=== PATIENT | male | born 1940 | race Caucasian/White ===

== ENCOUNTER 2018-08-06 09:02 | Inpatient (IN) | payer MEDICARE ==
--- NOTE | 2018-08-06 09:28 | ED ---
Shortness of Breath - HPI Summary HPI Summary: This patient is a 78 year old M presenting to [facility] accompanied by his daughter with a chief complaint of SOB that began yesterday that was worse this morning. The patient rates the pain 0/10 in severity. Symptoms alleviated by increased O2 and neb treatments. Patient reports productive cough, LE pain, and severe TREVINO. Patient denies fever. Pt states that he had minor CP yesterday but it resolved. Patient was unable to walk from the car into the ED without multiple breaks. 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 There he was given an albuterol neb. He uses 2L of NC at home and yesterday had to use his CPAP all day to breath. He has needed breathing treatments constantly throughout the day which is unusual for him. - History of Current Complaint Chief Complaint: EDShortnessOfBreath Time Seen by Provider: 08/06/18 09:16 Hx Obtained From: Patient Onset/Duration: Still Present Current Severity: Moderate Alleviating Factors: Bronchodilators, Oxygen Associated Signs & Symptoms: Negative - fever, Cough (Productive), Chest Pain Unrelated to Cough - Allergy/Home Medications Allergies/Adverse Reactions: Allergies Allergy/AdvReac Type Severity Reaction Status Date / Time red dye Allergy Itching Verified 08/06/18 09:10 PMH/Surg Hx/FS Hx/Imm Hx Endocrine/Hematology History: Denies: Hx Diabetes, Hx Systemic Lupus Erythematosus, Hx Thyroid Disease Cardiovascular History: Reports: Hx Hypertension - ON MEDICATION, Hx Rheumatic Fever - A CHILD Denies: Hx Pacemaker/ICD Respiratory History: Reports: Hx Asthma, Hx Chronic Obstructive Pulmonary Disease (COPD), Hx Sleep Apnea History: Denies: Hx Renal Disease Musculoskeletal History: Reports: Hx Arthritis - OSTEOARTHRITIS LEFT KNEE, MOST JOINTS Denies: Hx Rheumatoid Arthritis Sensory History: Reports: Hx Contacts or Glasses - GLASSES Denies: Hx Hearing Aid Opthamlomology History: Reports: Hx Contacts or Glasses - GLASSES Neurological History: Reports: Other Neuro Impairments/Disorders - 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 knee replacement, bilateral. brain anerysm repair 1987; [facility] Anesthesia Reactions: No Infectious Disease History: No Infectious Disease History: Denies: Traveled Outside the [place] in Last 30 Days - Family History Known Family History: Negative: Seizure Disorder - Social History Lives: With Family Alcohol Use: Rare Substance Use Type: Reports: None Hx Tobacco Use: Yes Smoking Status (MU): Smoker, Current Status Unknown Review of Systems Negative: Fever, Chills Negative: Erythema Negative: Sore Throat Positive: Chest Pain - resolved Positive: Shortness Of Breath, Cough, Other - TREVINO Negative: Abdominal Pain, Vomiting, Nausea Negative: dysuria, hematuria Positive: Myalgia - LE pain . Negative: Edema Negative: Rash Neurological: Negative - dizziness All Other Systems Reviewed And Are Negative: Yes Physical Exam - Summary Physical Exam Summary: Constitutional: Well-developed, Well-nourished, Alert. (-) Distressed Skin: Warm, Dry HENT: Normocephalic; Atraumatic Eyes: Conjunctiva normal Neck: Musculoskeletal ROM normal neck. (-) JVD, (-) Stridor, (-) Tracheal deviation Cardio: Rhythm regular, rate normal, Heart sounds normal; Intact distal pulses; The pedal pulses are 2+ and symmetric. Radial pulses are 2+ and symmetric. (-) Murmur Pulmonary/Chest wall: diminished breath sounds, bilateral wheezing, no distress Abd: Soft, (-) epigastric tenderness, (-) Distension, (-) Guarding, (-) Rebound Musculoskeletal: (-) Edema Lymph: (-) Cervical adenopathy Neuro: Alert, Oriented x3 Psych: Mood and affect Normal Triage Information Reviewed: Yes Vital Signs On Initial Exam: Initial Vitals Temp Pulse Resp BP Pulse Ox 98 F 73 28 152/82 90 08/06/18 09:04 08/06/18 09:04 08/06/18 09:04 08/06/18 09:04 08/06/18 09:04 Vital Signs Reviewed: Yes Diagnostics - Vital Signs Vital Signs Temp Pulse Resp BP Pulse Ox 08/06/18 09:04 98 F 73 28 152/82 90 - Laboratory Result Diagrams: 08/06/18 09:39 08/06/18 09:39 Lab Statement: Any lab studies that have been ordered have been reviewed, and results considered in the medical decision making process. - Radiology CXR Radiology Interpretation Completed By: Radiologist - NO ACTIVE CARDIOPULMONARY DISEASE IS NOTED. ED physician has reviewed this radiology report. - EKG 1006 Cardiac Rate: NL EKG Rhythm: Sinus Rhythm - at 86 BPM EKG Interpretation: ectopic atrial rhythm Course/Dx - Course Assessment/Plan: This patient is a 78 year old M presenting to [facility] accompanied by his daughter with a chief complaint of SOB that began yesterday that was worse this morning. The patient rates the pain 0/10 in severity. Symptoms alleviated by increased O2 and neb treatments. Patient reports productive cough, LE pain, and severe TREVINO. Patient denies fever. Pt states that he had minor CP yesterday but it resolved. Patient was unable to walk from the car into the ED without multiple breaks. 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 There he was given an albuterol neb. He uses 2L of NC at home and yesterday had to use his CPAP all day to breath. He has needed breathing treatments constantly throughout the day which is unusual for him. An EKG reveals ectopic atrial rhythm. CXR reveals, per radiologist, NO ACTIVE CARDIOPULMONARY DISEASE IS NOTED. Blood work and UA obtained. In the ED course the patient was given multiple breathing treatments , which alleviated sx. Pt's O2 dropped rapidly with ambulation. We discussed patient care with Dr Baldwin and they recommended a D dimer. He also accepted the patient for admission. Patient will be admitted. The patient is agreeable with this plan. - Diagnoses Provider Diagnoses: COPD exacerbation - Physician Notifications Discussed Care of Patient With: Anthony Baldwin Time Discussed With Above Provider: 13:40 Instructed by Provider To: Admit As Inpatient - We discussed patient care with Dr Baldwin and they recommended a D dimer. He also accepted the patient for admission Discharge - Sign-Out/Discharge Documenting (check all that apply): Patient Departure - admitted - Discharge Plan Condition: Good Disposition: ADMITTED TO [facility] - Attestation Statements Document Initiated by Scribe: Yes Documenting Scribe: Matias Murillo Provider For Whom Scribe is Documenting (Include Credential): Keith Spain MD Scribe Attestation: Matias Ramos , scribed for Keith Spain MD on 08/06/18 at 1748.
[2018-08-06] MEDS ORDERED: methylPREDNISolone 125 MG* 2 ML VIAL IV ONE (09:32)
[2018-08-06] MEDS ORDERED: Albuterol/Ipratropium NEB.SOL* Albuterol 2.5 MG/Ipratropium 0.5 MG 3 ML INH ONE ×2 (09:32→15:36)
[2018-08-06 09:48] LABS: ABS Basophils 0 10^3/ul (0-0.2); ABS Eosinophils 0.2 10^3/ul (0-0.6); ABS Lymphocytes 0.7 10^3/ul (1.0-4.8); ABS Monocytes 0.5 10^3/ul (0-0.8); ABS Neutrophils 4.7 10^3/ul (1.5-7.7); ABS Nucleated RBC 0 10^3/ul; Eosinophil % 3.2 % (0-6); Hematocrit 47 % (42-52); Hemoglobin 15.6 g/dl (14.0-18.0); Lymphocyte % 11.5 % (25-47); Mean Corpuscular HGB Conc 34 g/dl (31-36); Mean Corpuscular Hemoglobin 32 pg (27-31); Mean Corpuscular Volume 95 fL (80-94); Mean Platelet Volume 6.7 um3 (7.4-10.4); Nucleated Red Blood Cells % 0.1; Platelet Count 209 10^3/ul (150-450); Red Blood Count 4.89 10^6/ul (4.00-5.40); Red Cell Distribution Width 15 % (10.5-15); White Blood Count 6.2 10^3/ul (3.5-10.8)
[2018-08-06 10:07] LABS: EGFR Non-African American 109.4 (>60)
--- NOTE | 2018-08-06 10:14 | RAD ---
Indication: Shortness of breath. Single frontal view of the chest performed at 0947 hours was reviewed. Comparison is made with previous exam dated June 05, 2018. No mediastinal shift is noted. Heart is of normal size and configuration. Lung bedoya appear clear. Lung bedoya appear hyperinflated. IMPRESSION: NO ACTIVE CARDIOPULMONARY DISEASE IS NOTED.
[2018-08-06] MEDS ORDERED: Albuterol/Ipratropium NEB.SOL* Albuterol 2.5 MG/Ipratropium 0.5 MG 3 ML ONE (12:35)
[2018-08-06] MEDS ORDERED: Albuterol/Ipratropium NEB.SOL* Albuterol 2.5 MG/Ipratropium 0.5 MG 3 ML INH SCH (16:00)
[2018-08-06 16:53] LABS: Urine Appearance Clear; Urine Blood Negative (Negative); Urine Color Yellow; Urine Ketones Negative (Negative); Urine Protein Negative (Negative); Urine Red Blood Cell Trace(0-2/hpf) (Absent); Urine Specific Gravity 1.017 (1.010-1.030); Urine Urobilinogen Negative (Negative); Urine White Blood Cell Trace(0-5/hpf) (Absent)
[2018-08-06] MEDS: methylPREDNISolone SOD 40 MG* 1 ML VIAL IV SCH (18:20)
[2018-08-06] MEDS: Enoxaparin(*) 40 MG/0.4 ML SYR SUBCUT SCH (18:20)
[2018-08-06] MEDS: Albuterol/Ipratropium NEB.SOL* Albuterol 2.5 MG/Ipratropium 0.5 MG 3 ML INH SCH ×2 (19:39→23:05)
[2018-08-06] MEDS: Mometasone/Formoter 200/5 MDI INH SCH (19:39)
--- NOTE | 2018-08-06 21:33 | HP ---
ADMITTING HISTORY AND PHYSICAL: DATE OF ADMISSION: 08/06/18. CHIEF COMPLAINT: Increased work of breathing. HISTORY OF PRESENT ILLNESS: The patient is a 78-year-old gentleman with history of hypertension, GERD, as well as COPD/asthma, who is being followed up by Dr. Barlow as an outpatient and was in his usual state of health until a few hours prior to admission when the patient was scheduled for his regular followup visit with Dr. Barlow, when he was asked to perform ambulatory sats, but was unable to do so. More specifically ambulatory sats revealed that patient desaturated around 83% and hence Dr. Barlow advised that he be evaluated in the ED and hence his current subsequent admission. PAST MEDICAL HISTORY AND SURGICAL HISTORY: COPD/asthma, hypertension, brain aneurysm, status post clamping, status post appendectomy, status post inguinal hernia repair, status post bilateral total knee replacement. HOME MEDICATIONS: 1. Albuterol 120 mL/nebs 0.5% concentration b.i.d. 2. Amlodipine 7.5 mg p.o. q.a.m. 3. Famotidine 20 mg p.o. b.i.d. 4. Glucosamine chondroitin 2 caps p.o. q.a.m. 5. Ramipril 10 mg p.o. q.a.m. 6. Spironolactone 25 mg p.o. q.a.m. ALLERGIES: NKDA. FAMILY HISTORY: Carcinoma. His father has had history of prostate and colon cancer, and his mother has had history of liver cancer; diabetes, his brother. SOCIAL HISTORY: He mentions that he has a 60-pack year smoking history, but quit about 2 months ago. Currently, he lives with his girlfriend and has 3 children. REVIEW OF SYSTEMS: Denied any recent fevers, chills, nausea, vomiting. He did complain of some 2 minutes worth of chest pain just a few minutes ago, lasting about 2 to 3 minutes. He mentioned that this occurred when he walked to the bathroom and then when he got back to his gurney. He mentioned that this is non - radiating and stabbing in character. Other than walking, he does not associate any exacerbating or alleviating factors. Complains of shortness of breath as discussed above. Denied any abdominal pain, diarrhea, constipation, pain, and/or increased frequency on urination, myalgias, arthralgias, throat pain or new skin lesions. The rest of the 14-point review of systems are otherwise unremarkable. PHYSICAL EXAMINATION GENERAL APPEARANCE: The patient is awake, alert, and oriented on oxygen nasal cannula, otherwise his respiratory rate has decreased from 25 to maybe 21 to 20 per minute and has subsequently improved. VITAL SIGNS: Shows the most recent vital signs of record of 152/82, 99% saturation on 3 liters, 67 beats per minute heart rate. NECK: Soft, supple with no cervical lymphadenopathy. No JVD. CHEST: Slight wheezing on the upper portion of his chest, bibasilar crackles with poor air entry. HEART: S1, S2, within normal limits. Regular rate and rhythm. No murmurs, rubs, or gallops. ABDOMEN: Soft, nondistended, nontender. Normoactive bowel sounds x4 quadrants. EXTREMITIES: No cyanosis, clubbing. No edema. PSYCHIATRIC: No active psychosis, depression, suicidal, or homicidal ideations. SKIN: Skin is warm to touch. LABORATORY DATA: Most recent and pertinent laboratory shows CBC with a WBC of 6.2. H and H of 15.6 and 47. Platelets of 209. INR of 0.9. Sodium and potassium of 143 and 4.4. BUN and creatinine of 17 and 0.7. GFR of 109.4. Troponin of 0.02. ASSESSMENT AND PLAN: As follows: 1. Chronic obstructive pulmonary disease exacerbation, moderate. We will place the patient on DuoNebs, and Solu-Medrol as ordered and we will place the patient on long-acting Beta-agonist along with inhaled corticosteroids as ordered. D-dimer ordered and pending to evaluate for VTE. 2. Chest pain. Maybe possibly due to angina given possible exertional exacerbating factor. We will trend troponins to evaluate for ACS. Consider outpatient stress test once the patient is no longer in chronic obstructive pulmonary disease exacerbation. 3. Hypertension, well controlled. We will continue amlodipine and ramipril. 4. Gastroesophageal reflux disease. Continue famotidine. 5. Deep vein thrombosis prophylaxis. We will place the patient on Lovenox as ordered. 6. Disposition. As above. [id number]/[facility] #: [id number] [facility]
[2018-08-07] MEDS: methylPREDNISolone SOD 40 MG* 1 ML VIAL IV SCH ×3 (01:49→17:54)
[2018-08-07] MEDS: Albuterol/Ipratropium NEB.SOL* Albuterol 2.5 MG/Ipratropium 0.5 MG 3 ML INH SCH ×5 (03:03→19:36)
[2018-08-07] MEDS ORDERED: NS 0.9% 1000 ML* 1,000 ML IV ONE (03:38)
[2018-08-07 03:45] LABS: ABS Basophils 0 10^3/ul (0-0.2); ABS Eosinophils 0 10^3/ul (0-0.6); ABS Lymphocytes 0.5 10^3/ul (1.0-4.8); ABS Monocytes 0.1 10^3/ul (0-0.8); ABS Neutrophils 8.6 10^3/ul (1.5-7.7); ABS Nucleated RBC 0 10^3/ul; Eosinophil % 0 % (0-6); Hematocrit 43 % (42-52); Hemoglobin 14.2 g/dl (14.0-18.0); Lymphocyte % 5.6 % (25-47); Mean Corpuscular HGB Conc 34 g/dl (31-36); Mean Corpuscular Hemoglobin 32 pg (27-31); Mean Corpuscular Volume 96 fL (80-94); Mean Platelet Volume 6.9 um3 (7.4-10.4); Nucleated Red Blood Cells % 0.1; Platelet Count 204 10^3/ul (150-450); Red Blood Count 4.44 10^6/ul (4.00-5.40); Red Cell Distribution Width 15 % (10.5-15); White Blood Count 9.3 10^3/ul (3.5-10.8)
[2018-08-07 04:03] LABS: EGFR Non-African American 109.4 (>60)
[2018-08-07] MEDS: Mometasone/Formoter 200/5 MDI INH SCH ×2 (07:42→19:38)
[2018-08-07] MEDS: Omeprazole CAP* 20 MG PO SCH (08:17)
[2018-08-07] MEDS ORDERED: Pneumococcal *Vac Polyvalent 0.5 ML VIAL IM ONE (09:00)
[2018-08-07] MEDS ORDERED: Lisinopril TAB* 10 MG PO SCH (09:00)
--- NOTE | 2018-08-07 09:33 | PN ---
Subjective Date of Service: 08/07/18 Interval History: Mr. Hernandez reports SOB this morning. He he has oxygen at home and states that he does use this 09/06 for the most part. 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 He uses BiPAP with oxygen at night. He does not feel as though the oxygen helps with his SOB, but does feel as though the BiPAP is helpful and he is able to sleep through the night most nights. He states his last cigarette was a few weeks ago. He had been gradually cutting down prior to that. He has not been up ambulating today. Per nursing, he did have some bradycardia overnight. Family History: Unchanged from Admission Social History: Unchanged from Admission Past Medical History: Unchanged from Admission Objective Active Medications: Albuterol/Ipratropium (Duoneb (Albuterol 2.5 Mg/Ipratropium 0.5 Mg)) 1 neb INH [id number] AWAKE ISIDRO Amlodipine Besylate (Norvasc Tab*) 7.5 mg PO QAM ISIDRO Enoxaparin Sodium (Lovenox(*)) 40 mg SUBCUT Q24H ISIDRO Lisinopril (Prinivil Tab*) 10 mg PO DAILY ISIDRO Methylprednisolone Sodium Succinate (Solu-Medrol 40 Mg) 40 mg IV Q8H ISIDRO Mometasone Furoate/Formoterol Fumar (Dulera 200/5 Mdi*) 2 puff INH BID ISIDRO Omeprazole (Prilosec Cap*) 20 mg PO DAILY@0730 [facility] Vital Signs - 8 hr 08/07/18 08/07/18 03:32 07:43 Temperature 97.4 F Pulse Rate 52 64 Respiratory 22 20 Rate Blood Pressure 168/86 (mmHg) O2 Sat by Pulse 93 98 Oximetry Oxygen Devices in Use Now: Nasal Cannula Appearance: Elderly male sitting in bed in no acute distress, but with a slightly labored respiratory rate. Eyes: No Scleral Icterus, PERRLA Ears/Nose/Mouth/Throat: NL Teeth, Lips, Gums, Mucous Membranes Moist Neck: NL Appearance and Movements; NL JVP, Trachea Midline Respiratory: Symmetrical Chest Expansion and Respiratory Effort, - - Diminished with expiratory wheezes throughout Cardiovascular: NL Sounds; No Murmurs; No JVD, RRR, No Edema Abdominal: NL Sounds; No Tenderness; No Distention, No Hepatosplenomegaly Extremities: No Edema Skin: No Rash or Ulcers Neurological: Alert and Oriented x 3 Lines/Tubes/Other Access: Clean, Dry and Intact Peripheral IV Nutrition: Taking PO's Result Diagrams: 08/07/18 03:28 08/07/18 03:28 Assess/Plan/Problems-Billing Assessment: Mr. Hernandez is a 78yo male with PMH of COPD, asthma, HTN, and GERD who presented to the ED on 08/06/18 after experiencing low ambulatory sats in Dr. Barlow's office, and was found to have a COPD exacerbation. - Patient Problems (1) COPD exacerbation Current Visit: Yes Status: Acute Priority: High Code(s): J44.1 - CHRONIC OBSTRUCTIVE PULMONARY DISEASE W (ACUTE) EXACERBATION SNOMED Code(s): 089685357 Comment: - Hyperinflation noted on CXR - Negative D dimer - Continue supplemental oxygen, nebs, steroids (2) Chest pain Current Visit: Yes Status: Acute Priority: High Code(s): R07.9 - CHEST PAIN, UNSPECIFIED SNOMED Code(s): 14554507 Comment: - Resolved - Negative trops x3 - Likely r/t increased respiratory effort - Continue telemetry monitoring - May benefit from outpatient stress test (3) AMANDA (obstructive sleep apnea) Current Visit: Yes Status: Acute Code(s): G47.33 - OBSTRUCTIVE SLEEP APNEA ( ADULT) (PEDIATRIC) SNOMED Code(s): 31060856 Comment: - BiPAP (4) HTN (hypertension) Current Visit: Yes Status: Acute Priority: Medium Code(s): I10 - ESSENTIAL (PRIMARY) HYPERTENSION SNOMED Code(s): 53815414 Comment: - Labile since admission - Continue to trend - Continue amlodipine and lisinopril (5) GERD (gastroesophageal reflux disease) Current Visit: Yes Status: Acute Priority: Medium Code(s): K21.9 - GASTRO- ESOPHAGEAL REFLUX DISEASE WITHOUT ESOPHAGITIS SNOMED Code(s): 002275729 Comment: - Continue omeprazole (6) DNR (do not resuscitate) Current Visit: Yes Status: Acute Priority: High (7) DVT prophylaxis Current Visit: Yes Status: Acute Priority: High Code(s): EZO0545 - SNOMED Code(s): 081333863 Comment: - Lovenox Status and Disposition: Inpatient. D/c home when medically stable.
[2018-08-07] MEDS: amLODIPine TAB* 5 MG PO SCH (09:53)
[2018-08-07] MEDS: Enoxaparin(*) 40 MG/0.4 ML SYR SUBCUT SCH (17:54)
[2018-08-08] MEDS: Albuterol/Ipratropium NEB.SOL* Albuterol 2.5 MG/Ipratropium 0.5 MG 3 ML INH SCH ×7 (00:06→22:50)
[2018-08-08] MEDS: methylPREDNISolone SOD 40 MG* 1 ML VIAL IV SCH ×2 (03:08→09:39)
[2018-08-08] MEDS: Omeprazole CAP* 20 MG PO SCH (06:32)
[2018-08-08] MEDS: Mometasone/Formoter 200/5 MDI INH SCH ×2 (07:11→19:27)
[2018-08-08 07:25] LABS: ABS Basophils 0 10^3/ul (0-0.2); ABS Eosinophils 0 10^3/ul (0-0.6); ABS Lymphocytes 0.6 10^3/ul (1.0-4.8); ABS Monocytes 0.3 10^3/ul (0-0.8); ABS Neutrophils 14.7 10^3/ul (1.5-7.7); ABS Nucleated RBC 0 10^3/ul; Eosinophil % 0 % (0-6); Hematocrit 42 % (42-52); Lymphocyte % 3.7 % (25-47); Mean Corpuscular HGB Conc 33 g/dl (31-36); Mean Corpuscular Hemoglobin 32 pg (27-31); Mean Corpuscular Volume 95 fL (80-94); Mean Platelet Volume 7.2 um3 (7.4-10.4); Nucleated Red Blood Cells % 0; Platelet Count 232 10^3/ul (150-450); Red Cell Distribution Width 16 % (10.5-15); White Blood Count 15.6 10^3/ul (3.5-10.8)
[2018-08-08] MEDS: amLODIPine TAB* 5 MG PO SCH (07:57)
[2018-08-08] MEDS: Ramipril CAP* 10 MG PO SCH (07:58)
[2018-08-08] MEDS: Spironolactone TAB* 25 MG PO SCH (07:58)
[2018-08-08 07:59] LABS: EGFR Non-African American 119.1 (>60)
--- NOTE | 2018-08-08 14:34 | DCNOTE ---
Discharge Progress Note Primary Diagnosis: COPD exacerbation Secondary Diagnosis: chronic respiratory failure w/ hypoxia sleep apnea non-cardiac chest pain hypertension asthma/COPD GERD brain aneurysm s/p clipping procedure Consultants: none Procedures: none Complications: none Pertinent lab/radiology test results: Laboratory Tests 08/06/18 08/06/18 08/06/18 19:46 19:46 20:54 WBC D-Dimer, Quantitative < 200 Lactic Acid 3.2 H* Troponin I 0.01 08/06/18 08/07/18 08/07/18 23:43 03:28 06:33 WBC 9.3 D-Dimer, Quantitative Lactic Acid 1.5 Troponin I 0.01 08/08/18 07:03 WBC 15.6 H D-Dimer, Quantitative Lactic Acid Troponin I Tests pending upon discharge: none Physical Exam: Selected Entries 08/08/18 08/08/18 07:14 11:11 Temperature 36.3 C Pulse Rate 75 Respiratory 17 Rate Blood Pressure 148/83 (mmHg) O2 Sat by Pulse 93 Oximetry Alert, no distress Wearing 2L NC O2 Lungs: diminished throughout Heart; RRR, 1/6 systolic murmur Addendum. Patient not discharged due to recurrent chest pain.
--- NOTE | 2018-08-08 15:21 | PN ---
Subjective Date of Service: 08/08/18 Interval History: Patient feels breathing is better. Had 15 minutes of chest pain earlier today. In afternoon, had walk in [place], followed by 10 minutes of L-sided chest pain. Denies h/o CAD. Has heart murmur. Denies productive cough, pleuritic CP. At baseline on O2 at home. Family History: Unchanged from Admission Social History: Unchanged from Admission Past Medical History: Unchanged from Admission Objective Active Medications: Albuterol/Ipratropium (Duoneb (Albuterol 2.5 Mg/Ipratropium 0.5 Mg)) 1 neb INH [id number] AWAKE [facility] Last Admin: 08/08/18 14:52 Dose: 1 neb Amlodipine Besylate (Norvasc Tab*) 7.5 mg PO QAM [facility] Last Admin: 08/08/18 07:57 Dose: 7.5 mg Enoxaparin Sodium (Lovenox(*)) 40 mg SUBCUT Q24H [facility] Last Admin: 08/07/18 17:54 Dose: 40 mg Mometasone Furoate/Formoterol Fumar (Dulera 200/5 Mdi*) 2 puff INH BID [facility] Last Admin: 08/08/18 07:11 Dose: 2 puff Omeprazole (Prilosec Cap*) 20 mg PO DAILY@0730 [facility] Last Admin: 08/08/18 06:32 Dose: 20 mg Prednisone (Deltasone Tab*) 50 mg PO DAILY [facility] Ramipril (Altace Cap*) [facility] Last Admin: 08/08/18 07:58 Dose: 10 mg Spironolactone (Aldactone Tab*) [facility] Last Admin: 08/08/18 07:58 Dose: 25 mg Vital Signs - 8 hr 08/08/18 08/08/18 08/08/18 08:00 11:11 14:53 Pulse Rate 75 69 Respiratory 20 17 17 Rate O2 Sat by Pulse 97 93 97 Oximetry Oxygen Devices in Use Now: Nasal Cannula Appearance: alert, no distress Ears/Nose/Mouth/Throat: NL Teeth, Lips, Gums Neck: NL Appearance and Movements; NL JVP Respiratory: Clear to Percussion, - - diminished Cardiovascular: RRR, No Edema, - - 1/6 systolic murmur Abdominal: NL Sounds; No Tenderness; No Distention Lymphatic: No Cervical Adenopathy Extremities: No Edema Skin: No Rash or Ulcers Neurological: Alert and Oriented x 3 Lines/Tubes/Other Access: Clean, Dry and Intact Peripheral IV Nutrition: Taking PO's Result Diagrams: 08/08/18 07:03 08/08/18 07:03 Additional Lab and Data: Laboratory Tests 08/06/18 08/06/18 08/06/18 19:46 19:46 20:54 D-Dimer, Quantitative < 200 Lactic Acid 3.2 H* Troponin I 0.01 08/06/18 08/07/18 08/07/18 23:43 03:28 06:33 D-Dimer, Quantitative Lactic Acid 1.5 Troponin I 0.01 0.01 Microbiology and Other Data: Microbiology 08/06/18 10:09 Aerobic Blood Culture - Preliminary Blood Venous No Growth Day 2 Anaerobic Blood Culture - Preliminary No Growth Day 2 08/06/18 09:39 Aerobic Blood Culture - Preliminary Blood Venous No Growth Day 2 Anaerobic Blood Culture - Preliminary No Growth Day 2 08/06/18 10:09 Urine Culture - Final Urine No Growth (<1,000 CFU/mL) EKG Data: NSR, LT axis, LAFT, multiple PVCs Assess/Plan/Problems-Billing Assessment: Mr. Hernandez is a 78yo male with PMH of COPD, asthma, HTN, and GERD who presented to the ED on 08/06/18 after experiencing low ambulatory sats in Dr. Barlow's office, and was found to have a COPD exacerbation. - Patient Problems (1) COPD exacerbation Current Visit: Yes Status: Acute Priority: High Code(s): J44.1 - CHRONIC OBSTRUCTIVE PULMONARY DISEASE W (ACUTE) EXACERBATION SNOMED Code(s): 445474406 Comment: - COPD improving, switched to oral prednison - Continue supplemental oxygen, nebs, steroids - no clear need for antibiotics. - ready for d/c on pulmonary status (2) Chest pain Current Visit: Yes Status: Acute Priority: High Code(s): R07.9 - CHEST PAIN, UNSPECIFIED SNOMED Code(s): 14229329 Comment: - Pain is recurring w/ exertion, will need stress test - Negative trops x3 - Likely due to increased respiratory effort - Continue telemetry monitoring (3) GERD (gastroesophageal reflux disease) Current Visit: Yes Status: Chronic Priority: Medium Code(s): K21.9 - GASTRO-ESOPHAGEAL REFLUX DISEASE WITHOUT ESOPHAGITIS SNOMED Code(s): 934337234 Comment: - chest pain may be due to pericarditis, GERD, chest wall pain - Continue omeprazole (4) DVT prophylaxis Current Visit: Yes Status: Acute Priority: High Code(s): AII0718 - SNOMED Code(s): 910396062 Comment: - Lovenox Status and Disposition: Inpatient. D/c home when medically stable.
[2018-08-08] MEDS: Enoxaparin(*) 40 MG/0.4 ML SYR SUBCUT SCH (17:16)
[2018-08-09] MEDS: Albuterol/Ipratropium NEB.SOL* Albuterol 2.5 MG/Ipratropium 0.5 MG 3 ML INH SCH ×3 (03:15→11:06)
[2018-08-09] MEDS: Mometasone/Formoter 200/5 MDI INH SCH ×2 (07:14→23:00)
[2018-08-09] MEDS: predniSONE TAB* 50 MG PO SCH (08:37)
[2018-08-09] MEDS: Omeprazole CAP* 20 MG PO SCH (08:37)
[2018-08-09] MEDS: Ramipril CAP* 10 MG PO SCH (08:37)
[2018-08-09] MEDS: Spironolactone TAB* 25 MG PO SCH (08:37)
[2018-08-09] MEDS: amLODIPine TAB* 5 MG PO SCH (08:37)
[2018-08-09] MEDS: Nitroglycerin TAB 0.4 MG* 0.4 MG TAB SL PRN ×3 (13:18→13:39)
[2018-08-09] MEDS ORDERED: Nitroglycerin TAB 0.4 MG* 0.4 MG TAB ONE (13:55)
--- NOTE | 2018-08-09 16:10 | PN ---
Subjective Date of Service: 08/09/18 Interval History: Patient has generally improved SOB but has been having intermittent CP over the morning with associated diaphoresis and increased SOB. Patient states the pain intermittently radiates to his left arm. Patient still gets very SOB with exertion. Patient denies F/C, N/V, abdominal pain, palpitations, dizziness, or other pain. Family History: Unchanged from Admission Social History: Unchanged from Admission Past Medical History: Unchanged from Admission Objective Active Medications: Albuterol (Albuterol 0.5% Conc Neb.Iliana*) 0.2 ml INH BID [facility] Amlodipine Besylate (Norvasc Tab*) 7.5 mg PO QAM [facility] Last Admin: 08/09/18 08:37 Dose: 7.5 mg Enoxaparin Sodium (Lovenox(*)) 40 mg SUBCUT Q24H [facility] Last Admin: 08/08/18 17:16 Dose: 40 mg Mometasone Furoate/Formoterol Fumar (Dulera 200/5 Mdi*) 2 puff INH BID [facility] Last Admin: 08/09/18 07:14 Dose: 2 puff Nitroglycerin (Nitroglycerin Tab 0.4 Mg*) 0.4 mg SL Q5M PRN PRN Reason: ANGINA Omeprazole (Prilosec Cap*) 20 mg PO DAILY@0730 [facility] Last Admin: 08/09/18 08:37 Dose: 20 mg Prednisone (Deltasone Tab*) 50 mg PO DAILY [facility] Last Admin: 08/09/18 08:37 Dose: 50 mg Ramipril (Altace Cap*) [facility] [place] Last Admin: 08/09/18 08:37 Dose: 10 mg Spironolactone (Aldactone Tab*) 25 mg PO QAM [facility] Last Admin: 08/09/18 08:37 Dose: 25 mg Vital Signs - 8 hr 08/09/18 08/09/18 12:34 13:54 Temperature 97.3 F 98.2 F Pulse Rate 82 75 Respiratory 22 16 Rate Blood Pressure 129/67 114/66 (mmHg) O2 Sat by Pulse 94 93 Oximetry Oxygen Devices in Use Now: Nasal Cannula Appearance: Patient is a 78yo male who appears stated age and is sitting in the bed in [facility]. Eyes: No Scleral Icterus, PERRLA Ears/Nose/Mouth/Throat: NL Teeth, Lips, Gums, Clear Oropharnyx, Mucous Membranes Moist Neck: NL Appearance and Movements; NL JVP, Trachea Midline Respiratory: Symmetrical Chest Expansion and Respiratory Effort, - - Slight expiratory wheezes. Diminished throughout. Cardiovascular: NL Sounds; No Murmurs; No JVD, RRR, No Edema Abdominal: NL Sounds; No Tenderness; No Distention, No Hepatosplenomegaly Lymphatic: No Cervical Adenopathy Extremities: No Edema, No Clubbing, Cyanosis Skin: No Rash or Ulcers, No Nodules or Sclerosis Neurological: Alert and Oriented x 3, NL Sensation, NL Muscle Strength and Tone , - - CN II-XII intact. Result Diagrams: 08/08/18 07:03 08/08/18 07:03 Additional Lab and Data: Laboratory Tests 08/06/18 08/06/18 08/06/18 19:46 19:46 20:54 D-Dimer, Quantitative < 200 Lactic Acid 3.2 H* Troponin I 0.01 08/06/18 08/07/18 08/07/18 23:43 03:28 06:33 D-Dimer, Quantitative Lactic Acid 1.5 Troponin I 0.01 0.01 Microbiology and Other Data: Microbiology 08/06/18 10:09 Aerobic Blood Culture - Preliminary Blood Venous No Growth Day 2 Anaerobic Blood Culture - Preliminary No Growth Day 2 08/06/18 09:39 Aerobic Blood Culture - Preliminary Blood Venous No Growth Day 2 Anaerobic Blood Culture - Preliminary No Growth Day 2 08/06/18 10:09 Urine Culture - Final Urine No Growth (<1,000 CFU/mL) EKG Data: NSR, LT axis, LAFT, multiple PVCs Assess/Plan/Problems-Billing Assessment: Mr. Hernandez is a 78yo male with PMH of COPD, asthma, HTN, and GERD who presented to the ED on 08/06/18 after experiencing low ambulatory sats in Dr. Barlow's office, and was found to have a COPD exacerbation. Patient's respiratory status is improving but is having intermittent chest pain and is awaiting stress test. - Patient Problems (1) COPD exacerbation Current Visit: Yes Status: Acute Priority: High Code(s): J44.1 - CHRONIC OBSTRUCTIVE PULMONARY DISEASE W (ACUTE) EXACERBATION SNOMED Code(s): 514672958 Comment: - COPD improving, switched to oral prednison - Continue supplemental oxygen, nebs, steroids - no clear need for antibiotics. - Repeat ambulatory saturations in morning (2) Chest pain Current Visit: Yes Status: Acute Priority: High Code(s): R07.9 - CHEST PAIN, UNSPECIFIED SNOMED Code(s): 81145492 Comment: - Pain is recurring w/ exertion, will need stress test in am - Chest pain recurring throughout morning - Negative trops x3 - Concerning for cardiac origin - Continue telemetry monitoring - PRN nitroglycerin (3) DVT prophylaxis Current Visit: Yes Status: Acute Priority: High Code(s): QSE8631 - SNOMED Code(s): 569577125 Comment: - Lovenox (4) DNR (do not resuscitate) Current Visit: Yes Status: Chronic Priority: High (5) GERD (gastroesophageal reflux disease) Current Visit: Yes Status: Chronic Priority: Medium Code(s): K21.9 - GASTRO-ESOPHAGEAL REFLUX DISEASE WITHOUT ESOPHAGITIS SNOMED Code(s): 113913255 Comment: - Continue omeprazole (6) HTN (hypertension) Current Visit: Yes Status: Chronic Priority: Medium Code(s): I10 - ESSENTIAL (PRIMARY) HYPERTENSION SNOMED Code(s): 86162894 Comment: - Normotensive - Continue to trend - Continue amlodipine and lisinopril (7) AMANDA (obstructive sleep apnea) Current Visit: Yes Status: Chronic Code(s): G47.33 - OBSTRUCTIVE SLEEP APNEA (ADULT) (PEDIATRIC) SNOMED Code(s): 24327770 Comment: - BiPAP Status and Disposition: Inpatient. D/c home when medically stable.
[2018-08-09] MEDS: Enoxaparin(*) 40 MG/0.4 ML SYR SUBCUT SCH (17:18)
[2018-08-10 06:58] LABS: Hematocrit 42 % (42-52); Hemoglobin 14.2 g/dl (14.0-18.0); Mean Corpuscular HGB Conc 34 g/dl (31-36); Mean Corpuscular Hemoglobin 32 pg (27-31); Mean Corpuscular Volume 95 fL (80-94); Mean Platelet Volume 7.1 um3 (7.4-10.4); Platelet Count 217 10^3/ul (150-450); Red Blood Count 4.42 10^6/ul (4.00-5.40); Red Cell Distribution Width 15 % (10.5-15); White Blood Count 8.9 10^3/ul (3.5-10.8)
[2018-08-10 06:59] LABS: ABS Neutrophils 6.9 10^3/ul (1.5-7.7)
[2018-08-10 07:13] LABS: EGFR Non-African American 89.8 (>60)
[2018-08-10 07:38] LABS: ABS Basophils 0 10^3/ul (0-0.2); ABS Eosinophils 0.1 10^3/ul (0-0.6); ABS Lymphocytes 1.1 10^3/ul (1.0-4.8); ABS Monocytes 0.8 10^3/ul (0-0.8); ABS Nucleated RBC 0 10^3/ul; Eosinophil % 0.8 % (0-6); Lymphocyte % 11.9 % (25-47); Nucleated Red Blood Cells % 0.2
[2018-08-10] MEDS: Mometasone/Formoter 200/5 MDI INH SCH ×2 (08:15→20:56)
--- NOTE | 2018-08-10 11:55 | ECHO ---
Patient: AYAN DUTAT [facility] Rec#: [id number] : 1940 Date: 08/10/2018 Age: 78y Height: 173 cm / 68.1 in Weight: 89.8 kg / 197.9 lbs Sex: M BSA: 2.04 Room#: 451 Admit Date#: 08/06/2018 Type: Inpatient Referring: Sergo Morales Reading: Dean Thomason MD [employer] Inside: Viky Causey RDCS CC: Marcin Johnson MD Transthoracic Echocardiogram Indication: SOB/CP BP: 150/93 HR: 55 Rhythm: NSR with PACs Findings History: COPD/asthma,HTN,s/p clamping of brain aneurysm. Technical Comments: The study is technically limited due to the patient's history of COPD. Completed at 0841. Left Ventricle: The left ventricular chamber size is normal. Moderate global hypokinesis of the left ventricle is observed. There is moderately decreased left ventricular systolic function. The estimated ejection fraction is 35-40%. Abnormal left ventricular diastolic function is observed. Left Atrium: The left atrial chamber size is normal. Right Ventricle: The right ventricular cavity size is normal. The right ventricular global systolic function is mildly reduced. Right Atrium: The right atrial cavity size is normal. Aortic Valve: The aortic valve is trileaflet. There is evidence of aortic sclerosis without stenosis. There is a trace of aortic regurgitation. There is no evidence of aortic stenosis. Mitral Valve: The mitral valve leaflets are mildly thickened. There is mild mitral regurgitation. There is no evidence of mitral stenosis. Tricuspid Valve: The tricuspid valve leaflets are normal. There is mild tricuspid regurgitation. There is evidence that pulmonary hypertension may be underestimated. There is no tricuspid stenosis. Pulmonic Valve: The pulmonic valve appears normal. There is no evidence of pulmonic regurgitation. There is no pulmonic stenosis. Pericardium: A pericardial fat pad is visualized. Aorta: There is mild dilatation of the ascending aorta.3.6 cm The aortic arch is not well visualized. There is mild dilatation of the aortic root. Pulmonary Artery: The main pulmonary artery appears normal. Venous: The inferior vena cava is dilated. There is a greater than 50% respiratory change in the inferior vena cava dimension. Conclusions Moderate global hypokinesis of the left ventricle is observed. There is moderately decreased left ventricular systolic function. The estimated ejection fraction is 35-40%. The right ventricular global systolic function is mildly reduced. There is a trace of aortic regurgitation. There is no evidence of aortic stenosis. There is mild mitral regurgitation. There is mild tricuspid regurgitation. There is evidence that pulmonary hypertension may be underestimated. Compared to study of 10/06/08, the LV function is worse. Valve structures are the same Measurements Name Value Normal Range RVIDd (AP) 2D 3.6 cm (0.9 - 2.6) RVDdMajor (2D) 3.1 cm (2.2 - 4.4) RAd ISD 4CH 4.4 cm (3.4 - 4.9) RA (A4C)W 3.8 cm (2.9 - 4.6) IVSd (2D) 0.6 cm (0.6 - 1) LVPWd (2D) 0.7 cm (0.6 - 1) LVIDd (2D) 4.5 cm (3.6 - 5.4) LVIDs (2D) 3 cm - LV FS (2D) 33 % (25 - 45) Aortic Annulus 2.4 cm (1.4 - 2.6) Ao root diameter (2D) 3.9 cm (2.1 - 3.5) Ascending Ao 3.6 cm (2.1 - 3.4) LA dimension (AP) 2D 3.6 cm (2.3 - 3.8) LAd ISD 4CH 6.2 cm (2.9 - 5.3) LA ISD 4CH W 4.6 cm (2.5 - 4.5) Name Value Normal Range LA ESV SP 4CH (A/L) 43 ml - LA ESV SP 2CH (A/L) 23 ml - LA ESV BP (A/L) index 32 ml/m2 - Name Value Normal Range MV E-wave Vmax 0.7 m/sec - MV deceleration time 246 msec - MV A-wave Vmax 0.5 m/sec - MV E:A ratio 1.4 ratio - LV septal e' Vmax 0.1 m/sec - LV lateral e' Vmax 0.05 m/sec - LV E:e' septal ratio 7 ratio - LV E:e' lateral ratio 14 ratio - Name Value Normal Range AV Vmax 1.2 m/sec - AV VTI 28.6 cm - AV peak gradient 6 mmHg - AV mean gradient 2 mmHg - LVOT Vmax 0.7 m/sec - LVOT VTI 16.4 cm - LVOT peak gradient 2 mmHg - LVOT mean gradient 1 mmHg - Name Value Normal Range TR Vmax 2.3 m/sec - TR peak gradient 21 mmHg - RAP 8 mmHg - RVSP 29 mmHg - IVC diameter 2.4 cm - Name Value Normal Range PV Vmax 0.7 m/sec - PV peak gradient 2 mmHg -
--- NOTE | 2018-08-10 12:05 | RAD ---
Edited for charges. Indication: Chest pain. Myocardial perfusion scan was performed utilizing 1 day protocol. Rest myocardial perfusion was performed after intravenous injection of 10.7 mCi millicuries of technetium 99m tetrofosmin. Pharmacological stress was applied and 25.7 mCi of technetium 99m tetrofosmin was injected for the stress portion of the study. There is photopenic defect involving the inferior wall extending into the septum and lateral wall. This appears to be a fixed defect. There is ventriculomegaly noted. The ejection fraction at stress is 46%. Evaluation of wall motion demonstrates global hypokinesis. IMPRESSION: Moderate to large fixed defect in the inferior wall with ejection fraction of 46%. There is global hypokinesis noted. ASSESSMENT: High risk Based on imaging criteria from ACC/AHA 2002 Guideline Update for the Management of Patients With Chronic Stable Angina Table 23. Noninvasive Risk Stratification. Reference. MTDD
[2018-08-10] MEDS: amLODIPine TAB* 5 MG PO SCH (12:50)
[2018-08-10] MEDS: Ramipril CAP* 10 MG PO SCH (12:51)
[2018-08-10] MEDS: Omeprazole CAP* 20 MG PO SCH (12:52)
[2018-08-10] MEDS: predniSONE TAB* 50 MG PO SCH (12:52)
[2018-08-10] MEDS: Spironolactone TAB* 25 MG PO SCH (12:52)
[2018-08-10] MEDS: Albuterol 2.5 MG/3 ML NEB.SOL* (0.083%) INH SCH ×2 (12:54→20:55)
[2018-08-10] MEDS ORDERED: Regadenoson* 0.4 MG/5 ML SYRINGE ONE (13:07)
--- NOTE | 2018-08-10 14:50 | PN ---
Subjective Date of Service: 08/10/18 Interval History: Mr. Hernandez reports feeling well this morning and offers no complaints except wanting to eat. He has had no further chest pain or diaphoresis. Continues to have SOB on exertion. Denies N/V/D. Wearing 2L NC. Family at bedside. Family History: Unchanged from Admission Social History: Unchanged from Admission Past Medical History: Unchanged from Admission Objective Active Medications: Albuterol (Ventolin 2.5 Mg/3 Ml Neb.Iliana*) 1 mg INH BID [facility] Amlodipine Besylate (Norvasc Tab*) 7.5 mg PO QAM [facility] Enoxaparin Sodium (Lovenox(*)) 40 mg SUBCUT Q24H [facility] Mometasone Furoate/Formoterol Fumar (Dulera 200/5 Mdi*) 2 puff INH BID [facility] Nitroglycerin (Nitroglycerin Tab 0.4 Mg*) 0.4 mg SL Q5M PRN Omeprazole (Prilosec Cap*) 20 mg PO DAILY@0730 [facility] Prednisone (Deltasone Tab*) 50 mg PO DAILY [facility] Ramipril (Altace Cap*) 10 mg PO QAM [facility] Spironolactone (Aldactone Tab*) 25 mg PO QAM [facility] Vital Signs - 8 hr 08/10/18 08/10/18 08/10/18 07:27 08:00 08:17 Temperature 96.5 F Pulse Rate 31 72 Respiratory 20 20 18 Rate Blood Pressure 137/66 (mmHg) O2 Sat by Pulse 96 96 98 Oximetry Oxygen Devices in Use Now: Nasal Cannula - 2L Appearance: Elderly male sitting in bed in no acute distress. Eyes: No Scleral Icterus, PERRLA Ears/Nose/Mouth/Throat: NL Teeth, Lips, Gums, Mucous Membranes Moist Neck: NL Appearance and Movements; NL JVP, Trachea Midline Respiratory: Symmetrical Chest Expansion and Respiratory Effort, - - Decreased to auscultation throughout, coarse crackles in RLL Cardiovascular: NL Sounds; No Murmurs; No JVD, RRR, No Edema Abdominal: NL Sounds; No Tenderness; No Distention, No Hepatosplenomegaly Extremities: No Edema Skin: No Rash or Ulcers Neurological: Alert and Oriented x 3 Lines/Tubes/Other Access: Clean, Dry and Intact Peripheral IV Nutrition: Taking PO's Result Diagrams: 08/10/18 06:48 08/10/18 06:48 EKG Data: NSR, LT axis, LAFT, multiple PVCs Assess/Plan/Problems-Billing Assessment: Mr. Hernandez is a 78yo male with PMH of COPD, asthma, HTN, and GERD who presented to the ED on 08/06/18 after experiencing low ambulatory sats in Dr. Barlow's office, and was found to have a COPD exacerbation. Patient's respiratory status is improving but is having intermittent chest pain. - Patient Problems (1) COPD exacerbation Current Visit: Yes Status: Acute Priority: High Code(s): J44.1 - CHRONIC OBSTRUCTIVE PULMONARY DISEASE W (ACUTE) EXACERBATION SNOMED Code(s): 347564616 Comment: - COPD improving, switched to oral prednisone - Continue supplemental oxygen, nebs, steroids - No clear need for antibiotics (2) Chest pain Current Visit: Yes Status: Acute Priority: High Code(s): R07.9 - CHEST PAIN, UNSPECIFIED SNOMED Code(s): 90020178 Comment: - Pain and diaphoresis with exertion yesterday, none today - Negative trops x3 - Stress test this morning shows moderate to large fixed defect in the inferior wall and global hypokinesis; high risk - Continue telemetry monitoring - PRN nitroglycerin - Appreciate cardiology consult (3) AMANDA (obstructive sleep apnea) Current Visit: Yes Status: Chronic Code(s): G47.33 - OBSTRUCTIVE SLEEP APNEA (ADULT) (PEDIATRIC) SNOMED Code(s): 39381788 Comment: - BiPAP at HS (4) HTN (hypertension) Current Visit: Yes Status: Chronic Priority: Medium Code(s): I10 - ESSENTIAL (PRIMARY) HYPERTENSION SNOMED Code(s): 11601264 Comment: - Normotensive - Continue to trend - Continue amlodipine and ramipril (5) GERD (gastroesophageal reflux disease) Current Visit: Yes Status: Chronic Priority: Medium Code(s): K21.9 - GASTRO-ESOPHAGEAL REFLUX DISEASE WITHOUT ESOPHAGITIS SNOMED Code(s): 851410580 Comment: - Continue omeprazole (6) DNR (do not resuscitate) Current Visit: Yes Status: Chronic Priority: High (7) DVT prophylaxis Current Visit: Yes Status: Acute Priority: High Code(s): ICW5972 - SNOMED Code(s): 449179613 Comment: - Lovenox Status and Disposition: Inpatient. D/c home when medically stable.
[2018-08-10] MEDS: Enoxaparin(*) 40 MG/0.4 ML SYR SUBCUT SCH (16:59)
[2018-08-10] MEDS: Nitroglycerin TAB 0.4 MG* 0.4 MG TAB SL PRN ×2 (17:47→17:52)
--- NOTE | 2018-08-10 21:20 | CONS ---
CC: Nelson Motley MD; Marcin Johnson MD * CARDIOLOGY CONSULTATION: DATE OF CONSULT: 08/10/18 INDICATION FOR CONSULTATION: Chest pain, abnormal stress test. HISTORY OF PRESENT ILLNESS: The patient is a 78-year-old gentleman with a history of severe COPD oxygen dependent, pulmonary issues, who was admitted to the hospital with COPD exacerbation. Last Friday, the patient went to the hospital for some pulmonary testing. While he was there, he was noted to be significantly short of breath and having some chest pain with exertion. The patient was evaluated in the emergency room and was admitted to the hospital with a COPD exacerbation. The patient was started on Ventolin inhalers, steroids. His other medications were continued. The patient over the weekend improved and became less short of breath. Because of his episodes of chest pain , the patient was ordered to have a chemical nuclear stress test. His stress test showed a moderate area of inferior wall infarct, but no evidence of ischemia. His gaited images showed inferior wall hypokinesis, ejection fraction was calculated at 46%. While he was in the hospital, he also underwent an echocardiogram which demonstrated moderately reduced LV systolic function, ejection fraction around 40%. There was global hypokinesis. Aortic valve had no evidence of stenosis. His mitral valve had mild mitral regurgitation. Tricuspid valve had mild tricuspid regurgitation. No evidence of pericardial effusion. Compared to his echocardiogram in 2017, his LV function has dropped from 55% to 40%. In speaking with this patient, he himself thinks that his overall pulmonary issues are continuing to improve and that his chest pain was related to his COPD exacerbation. PAST MEDICAL HISTORY: Significant for hypertension, diastolic dysfunction, COPD , hypertension, abnormal EKG, dyspnea. PAST SURGICAL HISTORY: Right and left knee replacement surgeries, cardiac catheterization. The patient had a cardiac catheterization in 2008, which demonstrated no evidence of coronary artery disease. Again, the patient had an echocardiogram in 2017 which showed normal LV size and systolic function, ejection fraction 55% to 60%. No significant valvular abnormalities. PHYSICAL EXAM: His height is 5 feet 8 inches, weight is 198 pounds. Sclerae anicteric. Oropharynx is pink without erythema. Carotids are 2+ without bruits. JVD is normal. Thyroid is normal. Cardiac Exam: Distant heart sounds , S1 and S2 without any murmurs, rubs, or gallops. Lungs have markedly decreased breath sounds. There is no rhonchi or rales. There is no dullness to percussion. Abdomen is soft, nontender, nondistended with normoactive bowel sounds. Extremities show no edema. He has 2+ pulses throughout. The patient is awake, alert, and oriented. He moves all 4 extremities equally. DIAGNOSTIC STUDIES/LAB DATA: CBC within normal limits. Chemistries within normal limits. Troponins are negative x3. AST and ALT are normal. EKG demonstrates normal sinus rhythm with incomplete right bundle branch block. IMPRESSION: This is a 78-year-old gentleman who was admitted to the hospital with a chronic obstructive pulmonary disease exacerbation. While he was in the hospital, he had chest pain. The patient underwent a chemical nuclear stress test and an echocardiogram this weekend. His nuclear images demonstrate a fixed defect in its inferior wall with some degree of hypokinesis on the gaited images. His ejection fraction was 46%, again no areas of ischemia were noted. His echocardiogram does show a reduction in his LV function from 55% down to 40% to 45% and no significant valvular abnormalities. For now, my recommendation is the patient continue on his current medications. I think the patient's overall cardiac status is stable. I am not convinced that the patient has an acute coronary syndrome. The patient does have a significant change on his echocardiogram and stress test. This could be related to his chronic obstructive pulmonary disease exacerbation. For now, I will continue on his current cardiac medications. The patient will follow up with Dr. Motley as an outpatient. He actually has an appointment next week with Martha White from Dr. Motley's office. At that point, if the patient continues to have chest pain, we will consider cardiac catheterization. [id number] #: [id number] MTDD
[2018-08-11 06:17] LABS: Hematocrit 44 % (42-52); Hemoglobin 14.9 g/dl (14.0-18.0); Mean Corpuscular HGB Conc 34 g/dl (31-36); Mean Corpuscular Hemoglobin 32 pg (27-31); Mean Corpuscular Volume 94 fL (80-94); Platelet Count 228 10^3/ul (150-450); Red Blood Count 4.64 10^6/ul (4.00-5.40); Red Cell Distribution Width 15 % (10.5-15); White Blood Count 9.6 10^3/ul (3.5-10.8)
[2018-08-11 06:21] LABS: ABS Neutrophils 8.1 10^3/ul (1.5-7.7)
[2018-08-11 06:34] LABS: EGFR Non-African American 99.5 (>60)
[2018-08-11] MEDS: Albuterol 2.5 MG/3 ML NEB.SOL* (0.083%) INH SCH (07:35)
[2018-08-11] MEDS: Mometasone/Formoter 200/5 MDI INH SCH (07:36)
[2018-08-11] MEDS: Omeprazole CAP* 20 MG PO SCH (08:17)
[2018-08-11] MEDS: amLODIPine TAB* 5 MG PO SCH (08:17)
[2018-08-11] MEDS: Calcium Carbonate CHEW TAB* 500 MG (TUMS) PO PRN ×2 (08:17→12:21)
[2018-08-11] MEDS: predniSONE TAB* 50 MG PO SCH (08:18)
[2018-08-11] MEDS: Spironolactone TAB* 25 MG PO SCH (08:18)
[2018-08-11] MEDS: Ramipril CAP* 10 MG PO SCH (08:18)
[2018-08-11 08:26] LABS: ABS Basophils 0 10^3/ul (0-0.2); ABS Eosinophils 0 10^3/ul (0-0.6); ABS Lymphocytes 0.9 10^3/ul (1.0-4.8); ABS Monocytes 0.7 10^3/ul (0-0.8); ABS Nucleated RBC 0 10^3/ul; Eosinophil % 0.2 % (0-6); Lymphocyte % 8.8 % (25-47); Nucleated Red Blood Cells % 0.2
[2018-08-11 15:59] VITALS: BP 130/65
--- NOTE | 2018-08-12 14:17 | DS ---
AMENDED REPORT NOW INCLUDES COSIGNER DESIGNATION - ESIGNED BEFORE ADJUSTMENTS CC: Dr. Marcin Johnson; Dr. Nelson Motley; Dr. Barlow * DISCHARGE SUMMARY: DATE OF ADMISSION: 08/06/18 DATE OF DISCHARGE: 08/11/18 PRIMARY CARE PROVIDER: Dr. Marcin Johnson. CASE FINISHING MACHINE ADJUSTER: Dr. Nelson Motley. SECURITY ORDERLY: Dr. Barlow. ATTENDING PHYSICIAN: Dr. Baldwin * (dictated by Aylin Crain NP). PRIMARY DIAGNOSES: 1. Chronic obstructive pulmonary disease exacerbation. 2. Chest pain. SECONDARY DIAGNOSES: 1. Obstructive sleep apnea. 2. Hypertension. 3. Gastroesophageal reflux disease. STUDIES WHILE IN THE HOSPITAL: 1. Chest x-ray, on 08/06/18, reads as no active cardiopulmonary disease. 2. Transthoracic echocardiogram, on 08/09/18, reads as moderately decreased left ventricular systolic function. Estimated ejection fraction was 35% to 40% , global systolic function is mildly reduced, mild aortic mitral and tricuspid regurgitation, compared to the study on 10/06/08, the LV function is worse. 3. Nuclear stress test, on 08/10/18, reads as [id number] fixed defect in the inferior wall with the ejection fraction of 46%. There is global hypokinesis noted, assessment is high risk. CONSULTATIONS WHILE IN THE HOSPITAL: Dr. Dean Thomason consulted on the patient on 08/10/18 in consultation for an abnormal stress test. At that point , he recommended that the patient continue his current medication. He felt as though the patient's cardiac status was stable and that he did not have an acute coronary syndrome. He felt as though the stress test changes could be related to COPD exacerbation and he recommended that the patient follow up as an outpatient with Dr. Motley. If the patient had continued chest pain, he will consider a cardiac catheterization. DISCHARGE MEDICATIONS: New medications: 1. Dulera 200/5 two puffs b.i.d. 2. Pantoprazole 40 mg p.o. daily. 3. Prednisone taper 10 mg p.o. daily (5 tabs p.o. daily for 5 days, then 4 tabs daily for 2 days, then 3 tabs daily for 2 days, then 2 tabs daily for 2 days, then 1 tab daily for 2 days, then stop). 4. Spiriva 1 cap inhalation daily. 5. Calcium carbonate 500 mg p.o. q.4 hours p.r.n. Continued home medications: 1. Albuterol nebulizer 1 mg b.i.d. 2. Amlodipine 7.5 mg p.o. daily. 3. Glucosamine chondroitin 2 caps p.o. daily. 4. Ramipril 10 mg p.o. daily. 5. Spironolactone 25 mg p.o. daily. Discontinued home medications: 1. Famotidine 20 mg p.o. b.i.d. 2. Advair 2 puffs b.i.d. HISTORY OF PRESENT ILLNESS AND HOSPITAL COURSE: Mr. Hernandez is a 78-year-old male with a past medical history of COPD, hypertension, and GERD, who presented to the emergency room on 08/06/18 due to increased work of breathing. Please see the history and physical by Dr. Baldwin for a complete summary of the events leading up to this hospitalization, but in short, the patient was seen as an outpatient in Dr. Barlow's office, where his ambulatory sats were noted to be low in the 80s and he was referred to the emergency room. While in the emergency room, he was determined to have a moderate COPD exacerbation. He was continued on DuoNeb and started on Solu-Medrol. At that point, his chest pain was attributed to the COPD as he had 3 negative troponin and no EKG changes. The patient was prepared for discharged on 08/08/18, although prior to discharge , he ambulated in the hallway and then experienced 10 minutes of left-sided chest pain. The decision was made to hold the discharge. On 08/09/18, it was noted that the patient was still having intermittent chest pain with associated diaphoresis and increased shortness of breath. The pain was radiating to his left arm and at that point, a stress test was ordered. The patient underwent a nuclear stress test on 08/10/18 and was noted to be high risk. He was seen in consultation by Dr. Thomason as noted above who stated that the patient was safe for discharge as long as there were no further episodes of chest pain. The patient did have an episode of chest pain on 08/10/18 after eating dinner. He was given 2 tabs of nitro, which relieved the pain. As of today, the patient has had no further episodes of chest pain. He has been taking calcium carbonate with meals in an attempt to manage any GERD symptoms. I spoke with Dr. Thomason this morning to determine if the patient could still be discharged despite the pain at dinner yesterday, and Dr. Thomason felt it was still safe to discharge the patient home with close follow up as an outpatient. In regards to the patient's COPD, he has required 2 to 3 L of oxygen throughout this hospitalization. Shortness of breath has been gradually improving. On the day of discharge, he is using 2 L of oxygen at rest and denies shortness of breath. Mr. Hernandez is stable for discharge home today. Vital signs are as follows: Temp 97.4, heart rate 69, respiratory rate 18, oxygen saturation 94% on 2 L nasal cannula, blood pressure 130/65. DISCHARGE PLAN: Mr. Hernandez will be discharged to home. Activity will be as tolerated though the patient should avoid any strenuous activity that could exacerbate his chest pain. Diet will be low sodium. The patient has been started on 4 new medications as noted above; Dulera, Protonix, prednisone taper , and Spiriva. I should note that the Dulera was prescribed in place of Advair , which the patient has been using at home as he states that the Advair has a large co-pay and it was difficult for him to afford. He has been instructed to use 2 L of nasal cannula at rest and 4 L nasal cannula with ambulation. He and his family understand the criteria for which he should return to the emergency room for chest pain. He should follow up with Dr. Barlow in 1 to 2 weeks. He should follow up with Dr. Johnson in 4 to 7 days. He will be following up with Dr. Motley's office on 08/17/18. The patient has been instructed to return to the emergency room or nearest hospital for any worsening of symptoms, shortness of breath, lightheadedness, dizziness, chest pain, high fevers, chills, night sweats, loss of consciousness or any other worrisome signs or symptoms. He and his family are in understanding of the discharge instructions and plans. This is a summarized report of a complex medical history and hospital stay. For further details, please see the entire medical record. TIME SPENT: Approximately 50 minutes was spent on this discharge, greater than half of that time was spent [id number] with the patient discussing discharge plans and instructions. AYLIN CRAIN, MICHELLE [id number]/[facility] #: [id number] KARTHIK
== END 2018-08-11 16:12 | disposition home or self-care (01) | DRG 191 ==
LOC: ED 09:02 → MED 15:25 → MEDTELE 08-09 13:52
PROVIDERS: ADMIT Student in an Organized Health Care Education/Training Program; ATTEND Internal Medicine
PROC: 5A09357 Assistance with Respiratory Ventilation, Less than 24 Consecutive Hours, Continuous Positive Airway Pressure (ICD-10-PCS; principal; 2018-08-06)
DX: J44.1 Chronic obstructive pulmonary disease with (acute) exacerbation (principal); J96.11 Chronic respiratory failure with hypoxia; R07.89 Other chest pain; I10 Essential (primary) hypertension; K21.9 Gastro-esophageal reflux disease without esophagitis; Z96.653 Presence of artificial knee joint, bilateral; I45.10 Unspecified right bundle-branch block; G47.33 Obstructive sleep apnea (adult) (pediatric); I08.3 Combined rheumatic disorders of mitral, aortic and tricuspid valves; Z66 Do not resuscitate; Z80.0 Family history of malignant neoplasm of digestive organs; Z80.42 Family history of malignant neoplasm of prostate; Z83.3 Family history of diabetes mellitus; Z87.891 Personal history of nicotine dependence; Z91.048 Other nonmedicinal substance allergy status; Z85.46 Personal history of malignant neoplasm of prostate; Z72.89 Other problems related to lifestyle; Z99.81 Dependence on supplemental oxygen; Z23 Encounter for immunization; Z79.51 Long term (current) use of inhaled steroids
CPT/HCPCS: 36415; 71045; 78452; 80048; 80053; 81003; 83605; 83735; 84100; 84484; 85025; 85379; 85610; 85730; 87040; 87086; 90686; 90732; 93005; 93017; 93306; 94060; 94618; 94640; 94660; 94726; 94729; 99284; A9270-GY; A9502; J1650; J2785; J2920; J2930; J7512

== ENCOUNTER → 2019-01-06 12:47 | Emergency (ER) | payer MEDICARE ==
--- NOTE | 2019-01-06 13:26 | ED ---
Back Pain - HPI Summary HPI Summary: This pt is a 78 y/o male presenting to [facility] c/o left lower back pain radiating to left leg x3 days. Pt denies any injury or trauma to his back or leg. He notes he has never had back problems in the past. Denies hx of sciatica. Denies fever, chills, numbness, weakness, tingling, urinary or bowel incontinence. PMHx includes COPD. - History of Current Complaint Chief Complaint: EDHipPelvisInjury Stated Complaint: SOB/RIGHT HIP PAIN Time Seen by Provider: 01/06/19 13:23 Hx Obtained From: Patient Onset/Duration: Lasting Days, Still Present Onset/Duration: Started Days Ago, Still Present Timing: Lasting Days Back Pain Location: Is Discrete @ - left lower back, Radiates To - left leg Severity Currently: Severe Pain Intensity: 4 Pain Scale Used: 0-10 Numeric Character: Aching Aggravating Symptom(s): Nothing Alleviating Symptom(s): Nothing Associated Signs And Symptoms: Negative: Weakness, Numbness, Tingling, Abdominal Pain, Bladder Incontinence, Bowel Incontinence - Allergies/Home Medications Allergies/Adverse Reactions: Allergies Allergy/AdvReac Type Severity Reaction Status Date / Time red dye Allergy Itching Verified 01/06/19 12:54 PMH/Surg Hx/FS Hx/Imm Hx Endocrine/Hematology History: Denies: Hx Diabetes, Hx Systemic Lupus Erythematosus, Hx Thyroid Disease Cardiovascular History: Reports: Hx Angina, Hx Hypertension - ON MEDICATION, Hx Rheumatic Fever - A CHILD Denies: Hx Coronary Artery Disease, Hx Myocardial Infarction, Hx Pacemaker/ ICD, Hx Valvular Heart Disease Respiratory History: Reports: Hx Asthma, Hx Chronic Obstructive Pulmonary Disease (COPD), Hx Sleep Apnea History: Denies: Hx Renal Disease Musculoskeletal History: Reports: Hx Arthritis - OSTEOARTHRITIS LEFT KNEE, MOST JOINTS Denies: Hx Rheumatoid Arthritis Sensory History: Reports: Hx Contacts or Glasses - GLASSES Denies: Hx Hearing Aid Opthamlomology History: Reports: Hx Contacts or Glasses - GLASSES Neurological History: Reports: Other Neuro Impairments/Disorders - 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 knee replacement, bilateral. brain anerysm repair 1987; [facility] Anesthesia Reactions: No Infectious Disease History: No Infectious Disease History: Denies: Traveled Outside the [place] in Last 30 Days - Family History Known Family History: Negative: Seizure Disorder - Social History Alcohol Use: Rare Substance Use Type: Reports: None Hx Tobacco Use: Yes Smoking Status (MU): Former Smoker Type: Cigarettes Amount Used/How Often: 1pck/d Length of Time of Smoking/Using Tobacco: 60 Have You Smoked in the Last Year: Yes Review of Systems Negative: Fever, Chills Negative: incontinence Musculoskeletal: Other - POS: left lower back pain radiating to left leg Negative: Weakness, Paresthesia, Numbness All Other Systems Reviewed And Are Negative: Yes Physical Exam - Summary Physical Exam Summary: Appearance: Well-appearing, Well-nourished, lying in bed comfortably Skin: Warm, dry, no obvious rash Eyes: sclera anicteric, no conjunctival pallor ENT: mucous membranes moist, pharynx appears normal Neck: Supple, nontender Respiratory: Clear to auscultation, no signs of respiratory distress Cardiovascular: Normal S1, S2. No murmurs. Normal distal pulses in tibial and radial bilaterally. Abdomen: Soft, nontender, normal active bowel sounds present Musculoskeletal: Some tenderness in the left lower back. No tenderness overlying the trochanter of the left hip. No pain on rotation or flexion of the left hip. Neurological: A&Ox3, awake and alert, mentation is normal, speech is fluent and appropriate Psychiatric: affect is normal, does not appear anxious or depressed Triage Information Reviewed: Yes Vital Signs On Initial Exam: Initial Vitals Temp Pulse Resp BP Pulse Ox 97.2 F 79 20 133/104 92 01/06/19 12:50 01/06/19 12:50 01/06/19 12:50 01/06/19 12:50 01/06/19 12:50 Vital Signs Reviewed: Yes Diagnostics - Vital Signs Vital Signs Temp Pulse Resp BP Pulse Ox 01/06/19 12:50 97.2 F 79 20 133/104 92 - Laboratory Result Diagrams: 01/06/19 14:11 01/06/19 14:11 Lab Statement: Any lab studies that have been ordered have been reviewed, and results considered in the medical decision making process. - Radiology Left hip and pelvis XR Radiology Interpretation Completed By: Radiologist Summary of Radiographic Findings: IMPRESSION: No evidence for fracture. If the patient's symptoms persist recommend follow-up imaging. Dr. Escobar has reviewed this report. Lumbar spine XR Radiology Interpretation Completed By: Radiologist Summary of Radiographic Findings: IMPRESSION: #. Negative for vertebral body fracture. #. Unchanged grade 1 L5-S1 anterolisthesis with chronic bilateral L5 spondylosis. Alignment is otherwise unremarkable. #. Degenerative spondylosis with severe chronic L2-L3 and L5-S1 disc space narrowing. #. Severe facet joint osteoarthritis at L3-L4 through L5-S1. The unremarkable paraspinal soft tissue contours. Dr. Escobar has reviewed this report. Re-Evaluation - Re-Evaluation First Eval Re-Evaluation Time: 15:59 Comment: I reviewed lab and XR results with the pt. He will be discharged home. Back Pain Course/Dx - Course Assessment/Plan: Pt is a 78 y/o male who presents with left lower back pain radiating to left leg x3 days. Pt denies any injury or trauma to his back or leg. He notes he has never had back problems in the past. Left hip and pelvis XR is negative for a fracture. Lumbar spine XR reveals it is negative for vertebral body fracture. Pt will be discharged home and is advised to take OTC pain medications for his pain. He is instructed to return to the ED for any worsening symptoms such as, weakness in legs, and bladder or bowel problems. - Diagnoses Provider Diagnoses: Sciatica Discharge - Sign-Out/Discharge Documenting (check all that apply): Patient Departure - Discharge home Patient Received Moderate/Deep Sedation with Procedure: No - Discharge Plan Condition: Good Disposition: HOME Patient Education Materials: Sciatica (ED) Referrals: Marcin Johnson MD [Primary Care Provider] - Additional Instructions: Your xrays look ok and there were no surprises on the routine blood work. I suspect the problem is sciatica, a condition where the back hurts and the nerve roots get irritated, causing pain to radiate into one leg or the other. This is treated symptomatically with OTC pain relievers and usually resolves with time, though it can take several weeks to do so. If it gets much worse, or you develop neurologic symptoms like bowel or bladder problems or weakness in the feet or legs, you should be seen back here. - Billing Disposition and Condition Condition: GOOD Disposition: Home - Attestation Statements Document Initiated by Mengibe: Yes Documenting Scribe: Radha Jacobs Provider For Whom Scribe is Documenting (Include Credential): MD Meng Cliffordibbriseyda Attestation: IRadha, scribed for Orion Escobar MD on 01/07/19 at 1253. Scribbriseyda Documentation Reviewed: Yes Provider Attestation: The documentation as recorded by the Radha benavides accurately reflects the service I personally performed and the decisions made by me, Orion Escobar MD Status of Scribbriseyda Document: Viewed
[2019-01-06 14:24] LABS: ABS Basophils 0.1 10^3/ul (0-0.2); ABS Eosinophils 0.1 10^3/ul (0-0.6); ABS Lymphocytes 0.8 10^3/ul (1.0-4.8); ABS Monocytes 0.6 10^3/ul (0-0.8); ABS Neutrophils 8.5 10^3/ul (1.5-7.7); ABS Nucleated RBC 0 10^3/ul; Eosinophil % 0.7 %; Hematocrit 44 % (42-52); Hemoglobin 14.7 g/dl (14.0-18.0); Lymphocyte % 7.6 %; Mean Corpuscular HGB Conc 33 g/dl (31-36); Mean Corpuscular Hemoglobin 32 pg (27-31); Mean Corpuscular Volume 96 fL (80-94); Mean Platelet Volume 7.1 fL (7.4-10.4); Nucleated Red Blood Cells % 0; Platelet Count 223 10^3/ul (150-450); Red Cell Distribution Width 14 % (10.5-15)
[2019-01-06 14:40] LABS: Albumin 4.1 g/dL (3.2-5.2); Albumin/Globulin Ratio 1.5 (1-3); BUN/Creatinine Ratio 23.1 (8-20); C Reactive Protein 2.84 mg/L (<8.01); Calcium 9.8 mg/dL (8.6-10.3); EGFR African American 83.8 (>60); EGFR Non-African American 69.3 (>60); Globulin 2.8 g/dL (2-4); Total Bilirubin 0.3 mg/dL (0.2-1.0); Total Protein 6.9 g/dL (6.4-8.9)
[2019-01-06 15:17] LABS: Potassium 4.8 mmol/L (3.5-5.0)
[2019-01-06 16:08] VITALS: BP 130/89
== END | disposition home or self-care (01) ==
LOC: ED 12:47
DX: M54.42 Lumbago with sciatica, left side (principal); I10 Essential (primary) hypertension; Z96.653 Presence of artificial knee joint, bilateral; Z86.79 Personal history of other diseases of the circulatory system; Z87.891 Personal history of nicotine dependence
CPT/HCPCS: 36415; 72100; 80053; 85025; 86140; 99282